=== PATIENT | female | born 2005 | race Caucasian/White ===

== ENCOUNTER 2024-11-22 12:26 | Emergency (ER) | payer SELFPAY ==
[2024-11-22 12:29] VITALS: BP 123/89; PULSE 68; TEMP 36.8; O2SAT 100
--- NOTE | 2024-11-22 12:29 | ECG_ITS ---
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 Measurements Intervals [place] Rate: 68 P: 65 FL: 149 QRS: 76 QRSD: 99 T: 45 QT: 385 QTc: 411 Interpretive Statements SINUS RHYTHM WITH SINUS ARRHYTHMIA INCOMPLETE RIGHT BUNDLE BRANCH BLOCK [90+ ms QRS DURATION, TERMINAL R IN V1/V2, 40+ ms S IN I/aVL/V4/V5/V6] INTERPRETATION BASED ON A DEFAULT AGE OF 40 YEARS No previous ECG available for comparison Electronically Signed On 11-22-2024 20:01:34 CDT by Dany Gold M.D. [email or web address]
--- OUTSIDE RECORDS SUMMARY | 2024-11-22 12:39 | XMS_ITS | Patient Health Record ---
Author Organization [facility] Address [address] [place] [id number] Care Team Providers Care Property Manager Name Role Phone Mark Matute Primary Care Provider [phone] Allergies No Known Allergies Reason For Referral No Information Medications Medication SIG (Take, Route, Fr equency, Duration) Notes Start Date End Date Status Imitrex 25 MG 1 tablet as needed H A; may repeat in 2hrs x1 dose if needed Orally Twice a day Active Imitrex 5 MG/ACT 1 spray in each nost ril (10mg) Nasally prn HORTON; may repeat in 2hrs x 1 dose if needed 05/05/2021 Not-Taki ng Immunizations Vaccine Route Administration Date Status Comme nts MENINGOCOCCAL - VFC IM Intramuscular 12/31/2020 Administer ed Social History Sex Assigned At : Social History Observation Description Sex Assigned At Female - Question Answer Notes Did you have a drink containing alcohol in the p ast year? No Points 0 Interpretation Negative TAMMY Drug Questionnaire Question Answer Notes Have you used drugs other th an those for medical reasons in the past 12 months? No Have you ever had an STD Question Answer Notes Have you ever had an STD No Prevention Strategies Discussed Abstinence Problems Problem Type SNOMED Code ICD Code Onset Dates Problem Status W/U Status Risk Notes Problem 278105748 Menorrhagia with regular cycle (N92.0) Active confirmed Problem 928200341 Migraine variant (G43.809) Active confirmed Problem 925064613 Abnormal laboratory test result (R89.9) Active confirmed Problem 76612444 Generalized anxiety disorder (F41.1) Active confirmed Problem 834892912 Panic disorder (F41.0) Active confirmed Problem 88718345 Conversion disorder (F44.9) Active confirmed Problem 993090889 Major depressive disorder, recurrent episode, moderate (F33.1) Active confirmed Problem 053555659 Migraine with status migrainosus, not intractable, unspecified migraine type (G43.901) Active confirmed Problem 01803301 Paresthesia of upper limb (R20.2) Active confirmed Plan Of Treatment Future Test Test Name Order Date CMP-Devon/Anthony/Senthil/Jefry/PG O NLY 06/02/2022 CBC, Diff, Automated 06/02/2022 Medical (General) History Medical History History ICD Code Anxiety F41.9 Surgical History Surgery Date(Month/Year)
--- NOTE | 2024-11-22 13:02 | W.ED.SYNCOPE ---
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 States has had these events in the past states she had got lightheaded felt like she got a pass out states she did sit down and did not. She denies any chest pain or headache states symptoms since resolved and she feels back to her baseline. Associated symptoms: Deny abdominal pain, chest pain, fever(s), headache(s) or nausea Related Data Home Medications ?Medication ?Instructions ?Recorded ?Confirmed No Known Home Medications 11/22/24 11/22/24 Allergies Allergy/AdvReac Type Severity Reaction Status Date / Time No Known Allergies Allergy Verified 11/22/24 12:34 Review of Systems Const: Denies: fever(s), chills, body aches or change in appetite ENMT: Denies: throat pain or dental pain Card: Reports: pre-syncope; Denies: chest pain Resp: Denies: dyspnea GI: Denies: abdominal pain, nausea, vomiting or diarrhea Musc: Denies: neck pain or back pain Skin/Breast: Denies: rash Neuro: Denies: headache(s) Physical Exam Const: COMMON NORMALS: no acute distress, patient oriented x3 and healthy appearing HENMT: COMMON NORMALS: normocephalic and atraumatic HEAD & SCALP: normocephalic and atraumatic Eye: COMMON NORMALS: conjunctivae normal CONJUNCTIVA: Yes conjunctivae normal Neck/C-Spine: COMMON NORMALS: full ROM and supple Chest: COMMONS NORMALS: normal inspection of the chest Resp: COMMON NORMALS: normal respiratory effort, No retractions, No use of accessory muscles and clear to auscultation bilaterally AUSCULTATION: clear to auscultation bilaterally Cardio: COMMON NORMALS: regular rate, regular rhythm and No murmurs present (Cardio) RATE: regular rate RHYTHM: regular rhythm Extremity: COMMON NORMALS: normal to inspection and full ROM Neuro: COMMON NORMALS: patient oriented x3, moves all extremities and no focal motor deficits Psych: COMMON NORMALS: mental status grossly normal, Normal thought process present and cooperative THOUGHT PROCESS: Normal thought process present Skin: COMMON NORMALS: no rashes or lesions noted and no wounds GENERAL SKIN EXAM: no rashes or lesions noted Course Vital Signs: Vital signs: Vital Signs Temperature 98.2 F 11/22/24 12:29 Pulse Rate 68 11/22/24 12:29 Blood Pressure 123/89 11/22/24 12:29 Pulse Oximetry 100 11/22/24 12:29 Oxygen Delivery Me thod Room Air 11/22/24 12:29 MDM - Syncope Medical Decision Making Is back to her baseline blood work EKG are normal she stable for discharge follow-up PCP return if worsening patient presents with near syncopal event she is well-appearing here Medical Records I reviewed the patient's medical records. Lab Data I reviewed the patient's lab results. 11/22/24 12:51 11/22/24 12:51 Laboratory Results WBC 8.41 10^3/uL (4.5-13.0) 11/22/24 12:51 RBC 4.51 10^6/uL (3.85-5.65) 11/22/24 12:51 Hgb 13.60 g/dL (12.4-14.8) 11/22/24 12:51 Hct 41.4 % (36-47) 11/22/24 12:51 MCV 91.8 fl (85-98) 11/22/24 12:51 MCH 30.2 pg (27-33) 11/22/24 12:51 MCHC 32.9 g/dL (30-55) 11/22/24 12:51 RDW 12.0 % (12.1-15.1) L 11/22/24 12:51 Plt Count 230 10^3/cmm (157-399) 11/22/24 12:51 MPV 10.3 fL (7.4-10.4) 11/22/24 12:51 Neut % (Auto) 63.9 % 11/22/24 12:51 Lymph % (Auto) 27.5 % 11/22/24 12:51 [place] % (Auto) 5.6 % 11/22/24 12:51 Eos % (Auto) 2.0 % 11/22/24 12:51 Baso % (Auto) 0.6 % 11/22/24 12:51 Neut # (Auto) 5.38 10^3/uL (1.8-8.0) 11/22/24 12:51 Lymph # (Auto) 2.3 10^3/uL (1.5-6.5) 11/22/24 12:51 [place] # (Auto) 0.5 10^3/uL (0.2-0.9) 11/22/24 12:51 Eos # (Auto) 0.2 10^3/uL (0.0-0.8) 11/22/24 12:51 Baso # (Auto) 0.1 10^3/uL (0.0-0.1) 11/22/24 12:51 Nucleated RBC % (auto) 0 % 11/22/24 12:51 Nucleated RBCs # 0.0 /100WBC 11/22/24 12:51 Sodium 136 mmol/L (136-145) 11/22/24 12:51 Potassium 3.4 mmol/L (3.5-5.1) L 11/22/24 12:51 Chloride 100 mmol/L (98-107) 11/22/24 12:51 Carbon Dioxide 23 mmol/L (22-29) 11/22/24 12:51 Anion Gap 16.4 (5-19) 11/22/24 12:51 BUN 6 mg/dL (6-20) 11/22/24 12:51 Creatinine 0.4 mg/dL (0.5-0.9) L 11/22/24 12:51 GFR Calculation 203.5 mL/min (90-130) H 11/22/24 12:51 Glucose 84 mg/dL (65-115) 11/22/24 12:51 Calculated Osmolality 279 mOsm/kg (285-295) L 11/22/24 12:51 Calcium 9.6 mg/dL (8.5-10.5) 11/22/24 12:51 Total Bilirubin 1.0 mg/dL (0.15-1.2) 11/22/24 12:51 AST 12 U/L (0-32) 11/22/24 12:51 ALT 7 U/L (0-33) 11/22/24 12:51 Alkaline Phosphatase 59 U/L (35-105) 11/22/24 12:51 Total Protein 7.8 g/dL (6.6-8.7) 11/22/24 12:51 Albumin 4.5 g/dL (3.5-5.2) 11/22/24 12:51 Globulin 3.3 g/dL (1.3-4.6) 11/22/24 12:51 HCG, Qual Negative (Negative) 11/22/24 12:51 No radiology studies performed this visit EKG Data EKG 2: I personally reviewed and interpreted this EKG as follows: EKG interpretation date: 11/22/24 EKG interpretation time: 12:26 Interpretation: nsr hr [address] elevation qrs 99 qtc 403 Discharge Plan Discharge Patient Disposition: Home Clinical Impression: Near syncope Condition: Stable Prescriptions: No Action No Known Home Medications Discharge Orders: Discharge ED (Routine); Ordered 11/22/24 Ordered By: Cullen Acosta Discharge Diet: Advance as tolerated Discharge Activity: Resume usual activity Patient Instructions: Near Syncope (ED) Print Language: Nauruan Coding Level of Care Code ED Vice President Financial for [place] Jimenez
[2024-11-22 13:06] LABS: Hematocrit 41.4 % (36-47); Hemoglobin 13.60 g/dL (12.4-14.8); Mean Corpuscular HGB Conc 32.9 g/dL (30-55); Mean Corpuscular Hemoglobin 30.2 pg (27-33); Mean Corpuscular Volume 91.8 fl (85-98); Nucleated Red Blood Cells % 0 %; Platelet Count 230 10^3/cmm (157-399); Red Blood Count 4.51 10^6/uL (3.85-5.65); White Blood Count 8.41 10^3/uL (4.5-13.0)
[2024-11-22 13:16] LABS: HCG, Serum Qual Negative (Negative)
[2024-11-22 13:28] LABS: Alanine Aminotransferase 7 U/L (0-33); Albumin Level 4.5 g/dL (3.5-5.2); Alkaline Phosphatase 59 U/L (35-105); Anion Gap 16.4 (5-19); Aspartate Amino Transferase 12 U/L (0-32); Blood Urea Nitrogen 6 mg/dL (6-20); Calcium 9.6 mg/dL (8.5-10.5); Carbon Dioxide 23 mmol/L (22-29); Chloride 100 mmol/L (98-107); Globulin 3.3 g/dL (1.3-4.6); Glucose 84 mg/dL (65-115); Osmolality Calculated 279 mOsm/kg (285-295); Potassium 3.4 mmol/L (3.5-5.1); Sodium 136 mmol/L (136-145); Total Protein 7.8 g/dL (6.6-8.7)
[2024-11-22 14:02] VITALS: BP 102/74; PULSE 72; RESP 15; O2SAT 97
== END 2024-11-22 14:03 | disposition home or self-care (01) ==
PROVIDERS: Emergency Provider Emergency Medicine
DX: R55 Syncope and collapse (principal)
CPT/HCPCS: 36415; 80053; 84703; 85025; 93005; 99284